=== PATIENT | female | born 1980 | race Caucasian/White ===

== ENCOUNTER 2020-09-06 08:50 | Inpatient (IN) | payer OTHER ==
[~2020-09-06] VITALS: Ht 167.6 cm; Wt 92.5 kg
[2020-09-06] MEDS ORDERED: cefTRIAXone 1GM/50ML D5W 50 ML IV ONE (09:15)
[2020-09-06] MEDS ORDERED: SODIUM CHLORIDE 0.9% 1,000 ML IV ONE (09:15)
[2020-09-06] MEDS ORDERED: ACETAMINOPHEN 500 MG TAB PO ONE (09:15)
[2020-09-06] MEDS ORDERED: DexAMETHasone SOD PHOS 10MG/1ML VIAL INJ IV ONE (09:15)
[2020-09-06] MEDS ORDERED: AZITHROMYCIN 500MG/ 250ML 250 ML IV ONE (09:15)
[2020-09-06 09:38] LABS: Hemoglobin 9.7 g/dL (12.2-16.2); Red Cell Distribution Width 16.6 % (11.8-14.3)
[2020-09-06 09:40] LABS: Hematocrit 28.7 % (36.0-46.0); Mean Corpuscular Hemoglobin 24.9 pg (28.0-32.0); Mean Corpuscular Hgb Conc. 33.7 g/dL (32.0-36.0); Platelet Count (auto) 301 10^3/uL (140-450); Red Blood Cells 3.88 10^6/uL (4.0-5.20); White Blood Cell 18.3 10^3/uL (4.4-10.8)
[2020-09-06 09:45] LABS: Anion Gap 11 (5-15); Blood Urea Nitrogen 19 mg/dL (7-18); Calcium 7.2 mg/dL (8.5-10.1); Carbon Dioxide 21 mmol/L (21-32); Chloride 92 mmol/L (98-107); Glucose 112 mg/dL (74-106); Magnesium 1.8 mg/dL (1.6-2.6); Potassium 3.3 mmol/L (3.5-5.1); Sodium 124 mmol/L (136-145)
[2020-09-06 09:46] LABS: Basophils % (manual) 0 (0.0-2.0); Blast Cells 0; Lymphocytes % (manual) 0 (10.0-50.0); Metamyelocytes % 0; Monocytes % (manual) 0 (0-12); Promyelocytes % 0; Reactive Lymphocytes 0
[2020-09-06 09:47] LABS: Lactic Acid w/Reflex 2.6 mmol/L (0.4-2.0)
[2020-09-06 09:54] LABS: Alanine Aminotransferase 18 U/L (13-56); Alkaline Phosphatase 198 U/L (45-117); Aspartate Aminotransferase 26 U/L (15-37); BUN/Creatinine Ratio 15.1; Bilirubin, Total 0.6 mg/dL (0.2-1.0); GFR African American 60 mL/min; GFR Non-African American 50 mL/min; Lactate Dehydrogenase 185 U/L (84-246); Total Protein 6.5 g/dL (6.4-8.2)
[2020-09-06 09:55] LABS: CRP High Sensitivity > 19.0 mg/dL (< 0.3)
[2020-09-06] MEDS ORDERED: ENOXAPARIN SOD 100 MG/1 ML SYRINGE SC ONE (10:00)
[2020-09-06] MEDS ORDERED: CLOPIDOGREL BISULFATE 75 MG TAB PO ONE (10:00)
[2020-09-06] MEDS ORDERED: ASPirin 81 mg TAB PO ONE (10:00)
[2020-09-06] MEDS ORDERED: IOHEXOL 350 MG/ML 100ML IJ ONE (10:12)
[2020-09-06] MEDS ORDERED: NOREPINEPHRINE 8 MG/250ML KIT 250 ML IV SCH ×2 (10:15→12:45)
[2020-09-06] MEDS ORDERED: POTASSIUM EFFERVESENT TAB 25 MEQ PO ONE ×2 (10:15→18:45)
[2020-09-06] MEDS: PHENYLEPHRINE IV 250 ML IV SCH ×2 (10:15→18:07)
[2020-09-06 10:18] LABS: INR 1.08 (0.9-1.15)
[2020-09-06] MEDS ORDERED: MAGNESIUM SULFATE 1GM/100ML 100 ML IV ONE (10:30)
[2020-09-06 10:39] LABS: Band Neutrophils % (manual) 36; Eosinophils % (manual) 1 (0-7); Myelocytes % 1
[2020-09-06] MEDS ORDERED: ENOXAPARIN SOD 80 MG/0.8ML SYRINGE SC ONE (10:45)
[2020-09-06] MEDS ORDERED: ONDANSETRON HCL 4 MG/2 ML VIAL IV PRN (12:45)
[2020-09-06] MEDS ORDERED: MORPHINE SULF INJ 2 MG/ML SYRINGE 1ML IV PRN ×2 (12:45)
[2020-09-06] MEDS ORDERED: NITROGLYCERIN 0.4 MG SL TAB SL PRN (12:45)
[2020-09-06] MEDS: SODIUM CHLORIDE 0.9% 1,000 ML IV SCH ×2 (12:45→21:51)
[2020-09-06 13:54] LABS: Urine Bacteria NONE SEEN /hpf (None Seen); Urine Blood TRACE /uL (Negative); Urine Budding Yeast OCCASIONAL /hpf (None Seen); Urine Specific Gravity 1.033 (1.001-1.035); Urine WBC 93 /hpf (0 - 5)
[2020-09-06 13:56] LABS: Free T3 1.84 pg/mL (2.3-4.2); Free T4 (Free Thyroxine) 1.04 ng/dL (0.89-1.76)
[2020-09-06 15:36] LABS: BUN/Creatinine Ratio 19.5; Calcium 6.5 mg/dL (8.5-10.1); Potassium 3.2 mmol/L (3.5-5.1)
[2020-09-06] MEDS: NOREPINEPHRINE 8 MG/250ML KIT 250 ML IV SCH (16:32)
[2020-09-06] MEDS: PIPERACILLIN-TAZOB 3.375GM 100 ML IV SCH (17:43)
[2020-09-06] MEDS: ALBUTEROL SULF 2.5 MG/0.5ML(0.5%) NEB SOLN NEB SCH (18:00)
[2020-09-06] MEDS: HYDROcodone-ACET 5/325MG TAB PO PRN (18:00)
[2020-09-06] MEDS ORDERED: CALCIUM CARB 500 MG CHEW TAB PO PRN (19:45)
[2020-09-06 19:58] LABS: % Iron Saturation 3.9 % (15-50)
[2020-09-06] MEDS: LINEZOLID 600MG/300ML 300 ML IV SCH (21:51)
[2020-09-06] MEDS: HYDROCORTISONE SOD SUCC 100 MG/2ML INJ VIAL IV SCH (21:51)
[2020-09-06] MEDS: ENOXAPARIN SOD 80 MG/0.8ML SYRINGE SC SCH (21:51)
[2020-09-06] MEDS: ACETAMINOPHEN 500 MG TAB PO PRN (22:04)
[2020-09-07] VITALS (60 sets, daily range): BP systolic 81–111; BP diastolic 45–84
[2020-09-07] MEDS: PIPERACILLIN-TAZOB 3.375GM 100 ML IV SCH ×4 (00:16→20:00)
[2020-09-07] MEDS: NOREPINEPHRINE 8 MG/250ML KIT 250 ML IV SCH ×5 (00:51→18:50)
[2020-09-07] MEDS: HYDROcodone-ACET 5/325MG TAB PO PRN (00:56)
[2020-09-07] MEDS: PHENYLEPHRINE IV 250 ML IV SCH ×2 (02:55→11:15)
[2020-09-07 04:50] LABS: Platelet Count (auto) 402 10^3/uL (140-450)
[2020-09-07 04:51] LABS: Calcium 6.9 mg/dL (8.5-10.1); Potassium 3.2 mmol/L (3.5-5.1)
[2020-09-07 04:53] LABS: Hematocrit 28.9 % (36.0-46.0); Hemoglobin 9.9 g/dL (12.2-16.2); Mean Corpuscular Hemoglobin 25.7 pg (28.0-32.0); Mean Corpuscular Hgb Conc. 34.3 g/dL (32.0-36.0); Mean Corpuscular Volume 74.8 fL (80.0-100.0); Red Blood Cells 3.87 10^6/uL (4.0-5.20); Red Cell Distribution Width 16.7 % (11.8-14.3)
[2020-09-07 04:55] LABS: Basophils % (manual) 0 (0.0-2.0); Blast Cells 0; Eosinophils % (manual) 0 (0-7); Metamyelocytes % 0; Myelocytes % 0; Promyelocytes % 0; Reactive Lymphocytes 0
[2020-09-07] MEDS: SODIUM CHLORIDE 0.9% 1,000 ML IV SCH ×2 (05:00→14:00)
[2020-09-07 05:03] LABS: BUN/Creatinine Ratio 14.9
[2020-09-07] MEDS: ALBUTEROL SULF 2.5 MG/0.5ML(0.5%) NEB SOLN NEB SCH ×3 (06:00→18:00)
[2020-09-07 06:17] LABS: Band Neutrophils % (manual) 15; Lymphocytes % (manual) 2 (10.0-50.0); Monocytes % (manual) 2 (0-12)
[2020-09-07] MEDS ORDERED: POTASSIUM CHL 20 Meq TABLET PO ONE (07:30)
[2020-09-07] MEDS: HYDROCORTISONE SOD SUCC 100 MG/2ML INJ VIAL IV SCH (09:15)
[2020-09-07] MEDS: ASPirin 81 mg TAB PO SCH (09:16)
[2020-09-07] MEDS: FAMOTIDINE 20 MG TAB PO SCH (09:16)
[2020-09-07] MEDS: ENOXAPARIN SOD 80 MG/0.8ML SYRINGE SC SCH ×2 (09:17→22:07)
[2020-09-07] MEDS: LINEZOLID 600MG/300ML 300 ML IV SCH ×2 (17:39→21:04)
[2020-09-07] MEDS: ACETAMINOPHEN 500 MG TAB PO PRN (18:57)
[2020-09-07] MEDS ORDERED: HYDROCORTISONE SOD SUCC 100 MG/2ML INJ VIAL IV SCH (22:00)
[2020-09-08] VITALS (50 sets, daily range): BP systolic 89–132; BP diastolic 50–103
[2020-09-08 04:46] LABS: Hemoglobin 8.9 g/dL (12.2-16.2)
[2020-09-08 04:49] LABS: Hematocrit 26.6 % (36.0-46.0); Mean Corpuscular Hemoglobin 25.5 pg (28.0-32.0); Mean Corpuscular Hgb Conc. 33.6 g/dL (32.0-36.0); Mean Corpuscular Volume 75.7 fL (80.0-100.0); Platelet Count (auto) 376 10^3/uL (140-450); Red Blood Cells 3.51 10^6/uL (4.0-5.20); Red Cell Distribution Width 17.8 % (11.8-14.3); White Blood Cell 28.9 10^3/uL (4.4-10.8)
[2020-09-08 05:03] LABS: Lactic Acid w/Reflex 2.8 mmol/L (0.4-2.0)
[2020-09-08 05:05] LABS: Potassium 3.4 mmol/L (3.5-5.1)
[2020-09-08 05:14] LABS: Basophils % (manual) 0 (0.0-2.0); Blast Cells 0; Eosinophils % (manual) 0 (0-7); Metamyelocytes % 0; Monocytes % (manual) 0 (0-12); Myelocytes % 0; Promyelocytes % 0; Reactive Lymphocytes 0
[2020-09-08 05:22] LABS: Albumin 1.5 g/dL (3.4-5.0); BUN/Creatinine Ratio 8.1; Bilirubin, Total 0.4 mg/dL (0.2-1.0); Calcium 6.8 mg/dL (8.5-10.1); Magnesium 2.5 mg/dL (1.6-2.6); Total Protein 5.7 g/dL (6.4-8.2)
[2020-09-08] MEDS: PIPERACILLIN-TAZOB 3.375GM 100 ML IV SCH ×4 (06:00→18:00)
[2020-09-08] MEDS: ALBUTEROL SULF 2.5 MG/0.5ML(0.5%) NEB SOLN NEB SCH (07:10)
[2020-09-08] MEDS: SODIUM CHLORIDE 0.9% 1,000 ML IV SCH ×3 (08:24→13:30)
[2020-09-08 08:25] LABS: Band Neutrophils % (manual) 4; Lymphocytes % (manual) 5 (10.0-50.0)
[2020-09-08] MEDS: NOREPINEPHRINE 8 MG/250ML KIT 250 ML IV SCH ×3 (10:02→22:05)
[2020-09-08] MEDS: FAMOTIDINE 20 MG TAB PO SCH (10:03)
[2020-09-08] MEDS: ASPirin 81 mg TAB PO SCH (10:03)
[2020-09-08] MEDS: ENOXAPARIN SOD 80 MG/0.8ML SYRINGE SC SCH ×2 (10:03→22:00)
[2020-09-08] MEDS: LINEZOLID 600MG/300ML 300 ML IV SCH ×2 (10:03→22:00)
[2020-09-08] MEDS ORDERED: TEMAZEPAM 15 MG CAP PO PRN (12:15)
[2020-09-08] MEDS ORDERED: LEVALBUTEROL HCL 1.25 MG/3 ML NEB NEB SCH (12:30)
[2020-09-08] MEDS: LEVALBUTEROL HCL 1.25 MG/3 ML NEB NEB SCH ×2 (13:20→22:55)
[2020-09-08] MEDS ORDERED: POTASSIUM CHL 20 Meq TABLET PO ONE (13:30)
[2020-09-08] MEDS ORDERED: DIGOXIN 0.25 MG TAB PO ONE (15:00)
[2020-09-08 15:18] LABS: Amphetamine Screen, Urine NEGATIVE (NEGATIVE); Barbiturate Scree,Urine NEGATIVE (NEGATIVE); Benzodiazephine Screen, Urine NEGATIVE (NEGATIVE); Cannabinoid Screen, Urine NEGATIVE (NEGATIVE); Cocaine Screen, Urine NEGATIVE (NEGATIVE); Opiate Scree,Urine NEGATIVE (NEGATIVE); Phencyclidine Screen, Urine NEGATIVE (NEGATIVE)
[2020-09-08] MEDS: ACETAMINOPHEN 500 MG TAB PO PRN ×2 (15:48→23:21)
[2020-09-08] MEDS ORDERED: HALOPERIDOL LACTATE 5 MG/ML INJ VIAL IV PRN (17:15)
[2020-09-08] MEDS: LORazepam 2MG/ML-1ML VIAL IV PRN (17:24)
[2020-09-08] MEDS: SACUBITRIL-VALSARTAN 24mg/26mg TAB PO SCH (22:00)
[2020-09-08] MEDS ORDERED: ALBUMIN 5% 250 ML IV ONE ×2 (23:15)
[2020-09-09] VITALS (48 sets, daily range): BP systolic 88–108; BP diastolic 43–83
[2020-09-09] MEDS: PIPERACILLIN-TAZOB 3.375GM 100 ML IV SCH ×4 (00:10→17:47)
[2020-09-09] MEDS: LORazepam 2MG/ML-1ML VIAL IV PRN (00:28)
[2020-09-09] MEDS: LEVALBUTEROL HCL 1.25 MG/3 ML NEB NEB SCH ×3 (02:45→18:33)
[2020-09-09 03:33] LABS: Basophils # (auto) 0 10 ^3/uL (0-0.2); White Blood Cell 21.4 10^3/uL (4.4-10.8)
[2020-09-09 03:35] LABS: Basophils % (auto) 0.2 % (0.0-2.0); Eosinophils # (auto) 0.2 10 ^3/uL (0-0.8); Eosinophils % (auto) 0.8 % (0.0-7.0); Hematocrit 25.8 % (36.0-46.0); Hemoglobin 8.6 g/dL (12.2-16.2); Lymphocytes # (auto) 1.1 10 ^3/uL (0.4-5.4); Lymphocytes % (auto) 5.3 % (10.0-50.0); Mean Corpuscular Hemoglobin 25.4 pg (28.0-32.0); Mean Corpuscular Hgb Conc. 33.5 g/dL (32.0-36.0); Mean Corpuscular Volume 75.7 fL (80.0-100.0); Monocytes # (auto) 0.3 10 ^3/uL (0-1.3); Monocytes % (auto) 1.3 % (0.0-12.0); Neutrophils # (auto) 19.8 10 ^3/uL (1.6-8.6); Neutrophils % (auto) 92.4 % (37.0-80.0); Platelet Count (auto) 367 10^3/uL (140-450); Red Cell Distribution Width 16.9 % (11.8-14.3)
[2020-09-09 03:47] LABS: INR 1.13 (0.9-1.15)
[2020-09-09] MEDS: SODIUM CHLORIDE 0.9% 1,000 ML IV SCH ×2 (03:48→08:00)
[2020-09-09 03:52] LABS: BUN/Creatinine Ratio 9.2; Calcium 6.7 mg/dL (8.5-10.1)
[2020-09-09 03:54] LABS: Lactic Acid w/Reflex 2.3 mmol/L (0.4-2.0)
[2020-09-09] MEDS ORDERED: VASOPRESSIN 20 UNIT/ML ONE (04:14)
[2020-09-09] MEDS: VASOPRESSIN 50 UNITS in D5W 5% 247.5 ML IV SCH (04:15)
[2020-09-09] MEDS: NOREPINEPHRINE 8 MG/250ML KIT 250 ML IV SCH ×5 (04:45→22:15)
[2020-09-09] MEDS ORDERED: POTASSIUM CHL 20 Meq TABLET PO ONE (07:45)
[2020-09-09] MEDS: ASPirin 81 mg TAB PO SCH (09:12)
[2020-09-09] MEDS: SACUBITRIL-VALSARTAN 24mg/26mg TAB PO SCH ×2 (09:12→22:14)
[2020-09-09] MEDS: ENOXAPARIN SOD 80 MG/0.8ML SYRINGE SC SCH ×2 (09:13→22:14)
[2020-09-09] MEDS: FAMOTIDINE 20 MG TAB PO SCH (09:13)
[2020-09-09] MEDS: DIGOXIN 0.125 MG TAB PO SCH (10:00)
[2020-09-09] MEDS: LINEZOLID 600MG/300ML 300 ML IV SCH ×2 (10:20→22:14)
[2020-09-09] MEDS: POTASSIUM CHL 20 Meq TABLET PO SCH (22:14)
[2020-09-09] MEDS: ACETAMINOPHEN 500 MG TAB PO PRN (22:19)
[2020-09-10] VITALS (64 sets, daily range): BP systolic 81–110; BP diastolic 53–96
[2020-09-10] MEDS: VASOPRESSIN 50 UNITS in D5W 5% 247.5 ML IV SCH (00:01)
[2020-09-10] MEDS: PIPERACILLIN-TAZOB 3.375GM 100 ML IV SCH ×4 (00:01→18:42)
[2020-09-10] MEDS: LEVALBUTEROL HCL 1.25 MG/3 ML NEB NEB SCH ×4 (00:26→18:30)
[2020-09-10] MEDS: NOREPINEPHRINE 8 MG/250ML KIT 250 ML IV SCH ×2 (02:39→20:45)
[2020-09-10 05:15] LABS: Lactic Acid w/Reflex 2.4 mmol/L (0.4-2.0)
[2020-09-10 05:16] LABS: Potassium 3.1 mmol/L (3.5-5.1)
[2020-09-10 05:25] LABS: Albumin 1.7 g/dL (3.4-5.0); BUN/Creatinine Ratio 12.2; Bilirubin, Total 0.6 mg/dL (0.2-1.0); Calcium 6.6 mg/dL (8.5-10.1); Magnesium 2.1 mg/dL (1.6-2.6); Total Protein 5.3 g/dL (6.4-8.2)
[2020-09-10 05:28] LABS: Basophils # (auto) 0 10 ^3/uL (0-0.2); Basophils % (auto) 0.1 % (0.0-2.0); Eosinophils # (auto) 0.2 10 ^3/uL (0-0.8); Eosinophils % (auto) 1.2 % (0.0-7.0); Hematocrit 21.8 % (36.0-46.0); Hemoglobin 7.3 g/dL (12.2-16.2); Lymphocytes # (auto) 1.2 10 ^3/uL (0.4-5.4); Lymphocytes % (auto) 7.3 % (10.0-50.0); Mean Corpuscular Hemoglobin 25.1 pg (28.0-32.0); Mean Corpuscular Hgb Conc. 33.4 g/dL (32.0-36.0); Mean Corpuscular Volume 75.1 fL (80.0-100.0); Monocytes # (auto) 0.2 10 ^3/uL (0-1.3); Monocytes % (auto) 1.4 % (0.0-12.0); Neutrophils # (auto) 14.6 10 ^3/uL (1.6-8.6); Platelet Count (auto) 332 10^3/uL (140-450); Red Cell Distribution Width 17.2 % (11.8-14.3); White Blood Cell 16.2 10^3/uL (4.4-10.8)
[2020-09-10] MEDS: SODIUM CHLORIDE 0.9% 1,000 ML IV SCH ×2 (08:51→23:05)
[2020-09-10] MEDS ORDERED: FUROSEMIDE 40 MG/4 ML VIAL IV ONE (09:45)
[2020-09-10] MEDS ORDERED: POTASSIUM CHL 20 Meq TABLET PO ONE (09:45)
[2020-09-10] MEDS: SACUBITRIL-VALSARTAN 24mg/26mg TAB PO SCH (10:00)
[2020-09-10] MEDS: LINEZOLID 600MG/300ML 300 ML IV SCH ×2 (10:28→22:00)
[2020-09-10] MEDS: ASPirin 81 mg TAB PO SCH (10:30)
[2020-09-10] MEDS: DIGOXIN 0.125 MG TAB PO SCH (10:31)
[2020-09-10] MEDS: POTASSIUM CHL 20 Meq TABLET PO SCH (10:31)
[2020-09-10] MEDS: FAMOTIDINE 20 MG TAB PO SCH (10:31)
[2020-09-10] MEDS: ENOXAPARIN SOD 80 MG/0.8ML SYRINGE SC SCH (10:32)
[2020-09-10] MEDS ORDERED: POTASSIUM CHLORIDE 60 MEQ, LIDOCAINE 1% (LOCAL ANESTH.) 6 ML in SODIUM CHL 0.9% 500 ML IV ONE (14:00)
[2020-09-10] MEDS ORDERED: POTASSIUM CHLORIDE 40 MEQ, LIDOCAINE 1% (LOCAL ANESTH.) 4 ML in SODIUM CHL 0.9% 250 ML IV ONE (14:00)
[2020-09-10] MEDS: PHENYLEPHRINE INJ 40 MG in SODIUM CHL 0.9% 246 ML IV SCH (16:25)
[2020-09-10] MEDS ORDERED: VASOPRESSIN 20 UNIT/ML ONE ×2 (16:49→17:06)
[2020-09-10] MEDS: FUROSEMIDE 20 MG/2 ML VIAL IV SCH (18:42)
[2020-09-10] MEDS: ACETAMINOPHEN 500 MG TAB PO PRN (19:00)
[2020-09-10] MEDS ORDERED: POTASSIUM CHL 20MEQ/100ML 100 ML IV ONE (21:38)
[2020-09-10] MEDS ORDERED: POTASSIUM CHLORIDE 20 MEQ, LIDOCAINE 1% (LOCAL ANESTH.) 2 ML in SODIUM CHL 0.9% 100 ML IV SCH (22:00)
[2020-09-11] VITALS (76 sets, daily range): BP systolic 70–115; BP diastolic 46–81
[2020-09-11] MEDS: PIPERACILLIN-TAZOB 3.375GM 100 ML IV SCH ×4 (00:01→16:51)
[2020-09-11] MEDS: LEVALBUTEROL HCL 1.25 MG/3 ML NEB NEB SCH ×4 (00:29→18:58)
[2020-09-11] MEDS: NOREPINEPHRINE 8 MG/250ML KIT 250 ML IV SCH ×4 (03:25→23:25)
[2020-09-11] MEDS: VASOPRESSIN 50 UNITS in D5W 5% 247.5 ML IV SCH (04:15)
[2020-09-11 05:35] LABS: Red Cell Distribution Width 17.2 % (11.8-14.3)
[2020-09-11 05:38] LABS: Hematocrit 22.7 % (36.0-46.0); Hemoglobin 7.7 g/dL (12.2-16.2); Mean Corpuscular Hemoglobin 25.5 pg (28.0-32.0); Platelet Count (auto) 425 10^3/uL (140-450); Red Blood Cells 3.02 10^6/uL (4.0-5.20); White Blood Cell 14.9 10^3/uL (4.4-10.8)
[2020-09-11 05:55] LABS: Lactic Acid w/Reflex 2.6 mmol/L (0.4-2.0)
[2020-09-11 05:57] LABS: Basophils % (manual) 0 (0.0-2.0); Blast Cells 0; Monocytes % (manual) 0 (0-12); Myelocytes % 0; Promyelocytes % 0; Reactive Lymphocytes 0
[2020-09-11 06:00] LABS: Albumin 1.7 g/dL (3.4-5.0); Magnesium 2.1 mg/dL (1.6-2.6); Potassium 3.4 mmol/L (3.5-5.1)
[2020-09-11] MEDS: FUROSEMIDE 20 MG/2 ML VIAL IV SCH (06:00)
[2020-09-11 06:03] LABS: BUN/Creatinine Ratio 9.6; Bilirubin, Total 0.5 mg/dL (0.2-1.0); Total Protein 5.6 g/dL (6.4-8.2)
[2020-09-11] MEDS: PHENYLEPHRINE INJ 40 MG in SODIUM CHL 0.9% 246 ML IV SCH ×2 (06:40→23:20)
[2020-09-11] MEDS ORDERED: ENOXAPARIN SOD 100 MG/1 ML SYRINGE SC SCH (10:00)
[2020-09-11] MEDS ORDERED: POTASSIUM EFFERVESENT TAB 25 MEQ PO ONE (10:30)
[2020-09-11] MEDS: FAMOTIDINE 20 MG TAB PO SCH (10:35)
[2020-09-11] MEDS: LINEZOLID 600MG/300ML 300 ML IV SCH ×2 (10:35→22:00)
[2020-09-11] MEDS: DIGOXIN 0.125 MG TAB PO SCH (10:36)
[2020-09-11] MEDS: ENOXAPARIN SOD 100 MG/1 ML SYRINGE SC SCH ×2 (10:36→22:00)
[2020-09-11 11:21] LABS: Band Neutrophils % (manual) 25; Eosinophils % (manual) 1 (0-7); Lymphocytes % (manual) 17 (10.0-50.0); Metamyelocytes % 2
[2020-09-11] MEDS ORDERED: SODIUM CHLORIDE 0.9% 1,000 ML IV SCH (14:45)
[2020-09-12] VITALS (89 sets, daily range): BP systolic 66–109; BP diastolic 44–80
[2020-09-12] MEDS: LEVALBUTEROL HCL 1.25 MG/3 ML NEB NEB SCH ×4 (00:16→19:31)
[2020-09-12] MEDS: VASOPRESSIN 50 UNITS in D5W 5% 247.5 ML IV SCH (04:15)
[2020-09-12 05:36] LABS: Hematocrit 23.5 % (36.0-46.0); Mean Corpuscular Hemoglobin 25.9 pg (28.0-32.0); Mean Corpuscular Hgb Conc. 33.9 g/dL (32.0-36.0); Mean Corpuscular Volume 76.4 fL (80.0-100.0); Platelet Count (auto) 403 10^3/uL (140-450); Red Blood Cells 3.08 10^6/uL (4.0-5.20); Red Cell Distribution Width 17.8 % (11.8-14.3); White Blood Cell 10.2 10^3/uL (4.4-10.8)
[2020-09-12] MEDS: PIPERACILLIN-TAZOB 3.375GM 100 ML IV SCH ×4 (06:04→18:24)
[2020-09-12] MEDS: NOREPINEPHRINE 8 MG/250ML KIT 250 ML IV SCH ×3 (06:08→19:25)
[2020-09-12 06:49] LABS: Basophils % (manual) 0 (0.0-2.0); Blast Cells 0; Eosinophils % (manual) 0 (0-7); Monocytes % (manual) 0 (0-12); Promyelocytes % 0; Reactive Lymphocytes 0
[2020-09-12] MEDS ORDERED: POTASSIUM EFFERVESENT TAB 25 MEQ GT ONE (08:00)
[2020-09-12 08:31] LABS: Band Neutrophils % (manual) 30; Lymphocytes % (manual) 12 (10.0-50.0); Metamyelocytes % 1; Myelocytes % 2
[2020-09-12] MEDS: LINEZOLID 600MG/300ML 300 ML IV SCH ×2 (10:00→21:54)
[2020-09-12] MEDS ORDERED: FUROSEMIDE 20 MG TAB PO SCH (10:00)
[2020-09-12] MEDS ORDERED: POTASSIUM EFFERVESENT TAB 25 MEQ PO SCH (10:00)
[2020-09-12] MEDS ORDERED: POTASSIUM EFFERVESENT TAB 25 MEQ GT SCH (10:00)
[2020-09-12] MEDS: FUROSEMIDE 20 MG/2 ML VIAL IV SCH (10:19)
[2020-09-12] MEDS: POTASSIUM CHL 10 Meq TABLET PO SCH ×2 (10:20→21:54)
[2020-09-12] MEDS: DIGOXIN 0.125 MG TAB PO SCH (10:25)
[2020-09-12] MEDS: ENOXAPARIN SOD 100 MG/1 ML SYRINGE SC SCH ×2 (10:25→21:54)
[2020-09-12] MEDS: PHENYLEPHRINE INJ 40 MG in SODIUM CHL 0.9% 246 ML IV SCH (16:00)
[2020-09-13] VITALS (45 sets, daily range): BP systolic 60–114; BP diastolic 57–84
[2020-09-13] MEDS: NOREPINEPHRINE 8 MG/250ML KIT 250 ML IV SCH ×4 (02:05→22:05)
[2020-09-13] MEDS: VASOPRESSIN 50 UNITS in D5W 5% 247.5 ML IV SCH (04:15)
[2020-09-13 05:38] LABS: Potassium 3.5 mmol/L (3.5-5.1)
[2020-09-13 05:44] LABS: BUN/Creatinine Ratio 17.1; Calcium 7.2 mg/dL (8.5-10.1)
[2020-09-13] MEDS: LEVALBUTEROL HCL 1.25 MG/3 ML NEB NEB SCH ×2 (06:00→07:55)
[2020-09-13] MEDS: PIPERACILLIN-TAZOB 3.375GM 100 ML IV SCH ×4 (06:00→18:00)
[2020-09-13 06:13] LABS: Basophils # (auto) 0 10 ^3/uL (0-0.2); Basophils % (auto) 0.1 % (0.0-2.0); Eosinophils # (auto) 0.1 10 ^3/uL (0-0.8); Monocytes # (auto) 0.1 10 ^3/uL (0-1.3); Neutrophils # (auto) 7.5 10 ^3/uL (1.6-8.6); Nucleated Red Blood Cells % 0.2 %
[2020-09-13 06:16] LABS: Eosinophils % (auto) 1.3 % (0.0-7.0); Hematocrit 24.2 % (36.0-46.0); Hemoglobin 8.4 g/dL (12.2-16.2); Lymphocytes # (auto) 1.1 10 ^3/uL (0.4-5.4); Lymphocytes % (auto) 12.5 % (10.0-50.0); Mean Corpuscular Hemoglobin 26.2 pg (28.0-32.0); Mean Corpuscular Hgb Conc. 34.5 g/dL (32.0-36.0); Mean Corpuscular Volume 76.1 fL (80.0-100.0); Monocytes % (auto) 1.5 % (0.0-12.0); Neutrophils % (auto) 84.6 % (37.0-80.0); Platelet Count (auto) 441 10^3/uL (140-450); Red Blood Cells 3.18 10^6/uL (4.0-5.20); Red Cell Distribution Width 17.9 % (11.8-14.3); White Blood Cell 8.9 10^3/uL (4.4-10.8)
[2020-09-13] MEDS: ENOXAPARIN SOD 100 MG/1 ML SYRINGE SC SCH ×2 (10:00→22:19)
[2020-09-13] MEDS: DIGOXIN 0.125 MG TAB PO SCH (10:26)
[2020-09-13] MEDS: LINEZOLID 600MG/300ML 300 ML IV SCH ×2 (12:00→22:19)
[2020-09-13] MEDS: FUROSEMIDE 20 MG/2 ML VIAL IV SCH (12:00)
[2020-09-13] MEDS: POTASSIUM CHL 10 Meq TABLET PO SCH ×2 (12:00→22:19)
[2020-09-14] VITALS (15 sets, daily range): BP systolic 95–111; BP diastolic 57–79
[2020-09-14 04:28] LABS: Hematocrit 24.2 % (36.0-46.0); Hemoglobin 8.2 g/dL (12.2-16.2)
[2020-09-14 04:30] LABS: Mean Corpuscular Hemoglobin 26.3 pg (28.0-32.0); Mean Corpuscular Hgb Conc. 33.9 g/dL (32.0-36.0); Mean Corpuscular Volume 77.6 fL (80.0-100.0); Platelet Count (auto) 378 10^3/uL (140-450); Red Blood Cells 3.12 10^6/uL (4.0-5.20); White Blood Cell 5.2 10^3/uL (4.4-10.8)
[2020-09-14] MEDS: NOREPINEPHRINE 8 MG/250ML KIT 250 ML IV SCH ×2 (04:45→10:38)
[2020-09-14 05:02] LABS: Potassium 3.6 mmol/L (3.5-5.1)
[2020-09-14 05:06] LABS: Albumin 1.8 g/dL (3.4-5.0); Bilirubin, Direct 0.1 mg/dL (0-0.2); Bilirubin, Total 0.4 mg/dL (0.2-1.0); Total Protein 4.9 g/dL (6.4-8.2)
[2020-09-14 05:14] LABS: BUN/Creatinine Ratio 16.7; Calcium 7.6 mg/dL (8.5-10.1)
[2020-09-14] MEDS: PIPERACILLIN-TAZOB 3.375GM 100 ML IV SCH ×4 (05:14→18:02)
[2020-09-14 05:15] LABS: Basophils % (manual) 0 (0.0-2.0); Blast Cells 0; Promyelocytes % 0; Reactive Lymphocytes 0
[2020-09-14 08:06] LABS: Band Neutrophils % (manual) 5; Eosinophils % (manual) 1 (0-7); Lymphocytes % (manual) 14 (10.0-50.0); Metamyelocytes % 2; Monocytes % (manual) 5 (0-12); Myelocytes % 1
[2020-09-14] MEDS: DIGOXIN 0.125 MG TAB PO SCH (09:16)
[2020-09-14] MEDS: POTASSIUM CHL 10 Meq TABLET PO SCH ×2 (09:16→21:28)
[2020-09-14] MEDS: ENOXAPARIN SOD 100 MG/1 ML SYRINGE SC SCH ×2 (09:17→21:29)
[2020-09-14] MEDS: FUROSEMIDE 20 MG/2 ML VIAL IV SCH (09:18)
[2020-09-14] MEDS: LINEZOLID 600MG/300ML 300 ML IV SCH (10:11)
[2020-09-15] MEDS: PIPERACILLIN-TAZOB 3.375GM 100 ML IV SCH ×3 (00:41→12:07)
[2020-09-15 05:00] VITALS: BP 101/73
[2020-09-15 07:19] LABS: Potassium 3.9 mmol/L (3.5-5.1)
[2020-09-15 07:21] LABS: Magnesium 2.1 mg/dL (1.6-2.6)
[2020-09-15 08:09] VITALS: BP 118/77
[2020-09-15] MEDS: POTASSIUM CHL 10 Meq TABLET PO SCH (10:13)
[2020-09-15] MEDS: FUROSEMIDE 20 MG/2 ML VIAL IV SCH (10:13)
[2020-09-15] MEDS: DIGOXIN 0.125 MG TAB PO SCH (10:13)
[2020-09-15] MEDS: ENOXAPARIN SOD 100 MG/1 ML SYRINGE SC SCH (10:14)
[2020-09-15] MEDS ORDERED: APIX5TAB4 PO (13:42)
[2020-09-15] MEDS ORDERED: DIGO0.12 PO (13:42)
[2020-09-15] MEDS ORDERED: LEVO750T8 PO (13:42)
[2020-09-15] MEDS ORDERED: LISI2.5T47 PO (13:42)
[2020-09-15 16:03] VITALS: BP 101/64
== END 2020-09-15 16:40 | disposition home or self-care (01) | DRG 871 ==
LOC: EDBD 08:50 → ER 08:50 → TELE 08:51 → CATH ICU 13:09 → TELE-CENTR 09-14 17:32
PROVIDERS: ADMIT Nurse Practitioner Acute Care; ATTEND Internal Medicine
PROC: 02HV33Z Insertion of Infusion Device into Superior Vena Cava, Percutaneous Approach (ICD-10-PCS; principal; 2020-09-05)
DX: A41.89 Other specified sepsis (principal); E43 Unspecified severe protein-calorie malnutrition; G93.41 Metabolic encephalopathy; I21.4 Non-ST elevation (NSTEMI) myocardial infarction; J96.90 Respiratory failure, unspecified, unspecified whether with hypoxia or hypercapnia; N17.0 Acute kidney failure with tubular necrosis; N17.1 Acute kidney failure with acute cortical necrosis; R65.21 Severe sepsis with septic shock; U07.1 COVID-19; J12.82 Pneumonia due to coronavirus disease 2019; D84.9 Immunodeficiency, unspecified; E87.1 Hypo-osmolality and hyponatremia; K80.00 Calculus of gallbladder with acute cholecystitis without obstruction; I82.491 Acute embolism and thrombosis of other specified deep vein of right lower extremity; D50.9 Iron deficiency anemia, unspecified; E66.9 Obesity, unspecified; E87.6 Hypokalemia; K21.9 Gastro-esophageal reflux disease without esophagitis; K44.9 Diaphragmatic hernia without obstruction or gangrene; Z79.01 Long term (current) use of anticoagulants; Z68.32 Body mass index [BMI] 32.0-32.9, adult
CPT/HCPCS: 36415; 36556; 51702; 70450; 71045; 71275; 74176; 76604; 76705; 76856; 78226; 80048; 80053; 80061; 80076; 80162; 80307; 81001; 82270; 82533; 82542; 82728; 83540; 83550; 83605; 83615; 83735; 83880; 84132; 84439; 84443; 84481; 84484; 85007; 85025; 85027; 85379; 85610; 85652; 85730; 86141; 87040; 87070; 87081; 87086; 87278; 87426; 93005; 93306; 93886; 93970; 94003; 94640; 96365; 96366; 96368; 96372; 96375; 97163; 99291; G0378; J0696; J2001; J2543; J3480; J7060